=== PATIENT | male | born 1975 | race African-American/Black ===

== ENCOUNTER 2017-01-28 23:56 | Emergency (ER) | payer MEDICARE, OTHER ==
[~2017-01-28] VITALS: Ht 177.8 cm; Wt 171.5 kg
[~2017-01-28 23:56] MED LIST: ALBUTEROL SULF8.5 GM INH; AMOXICILLIN500 MG ORAL; ASPIR 8181 MG ORAL; ASPIRIN EC81 MG ORAL; BENAZEPRIL HCL20 MG ORAL; CLINDAMYCIN HC300 MG ORAL; FAMOTIDINE20 MG ORAL; HALOPERIDOL MC; HALOPERIDOL10 MG ORAL; HYDROXYZINE PA100 MG ORAL; HYDROXYZINE PAM50 MG PO; IBUPROFEN200 M2 ORAL; LISINOPRIL10 MG ORAL; METOPROLOL TART25 MG ORAL; PANTOPRAZOLE SO40 MG ORAL; PAROXETINE HC12.5 MG ORAL; PREDNISONE20 MG ORAL; VENTOLIN HFA18 GM INH; ZIPRASIDONE HCL80 MG ORAL
[2017-01-29 01:59] LABS: BASOPHILS % (AUTO) 1.1 % (0.0-2.0); EOSINOPHILS % (AUTO) 4.5 % (0.0-3.0); LYMPHOCYTES % (AUTO) 24.7 % (20.0-45.0); MEAN CORPUSCULAR HEMOGLOBIN 26.8 PG (27.0-31.0); MEAN CORPUSCULAR HGB CONC 31.8 G/DL (32.0-36.0); MEAN CORPUSCULAR VOLUME 84 FL (80-99); MEAN PLATELET VOLUME 9.5 FL (6.5-10.1); MONOCYTES % (AUTO) 7.4 % (1.0-10.0); NEUTROPHILS % (AUTO) 62.3 % (45.0-75.0); PLATELET COUNT 217 K/UL (150-450); RED BLOOD COUNT 5.91 M/UL (4.70-6.10); RED CELL DISTRIBUTION WIDTH 12.7 % (11.6-14.8); WHITE BLOOD COUNT 11.8 K/UL (4.8-10.8)
[2017-01-29 02:13] LABS: ACETAMINOPHEN < 10 ug/mL (10-30); ALANINE AMINOTRANSFERASE 18 U/L (3-41); ALBUMIN/GLOBULIN RATIO 1.3 (1.0-2.7); ALCOHOL < 10 mg/dL; ANION GAP 15 (5-15); ASPARTATE AMINO TRANSFERASE 21 U/L (5-40); CALCIUM 9.3 mg/dL (8.6-10.2); CARBON DIOXIDE 27 mEQ/L (20-30); CHLORIDE 97 mEQ/L (98-107); CREATININE 1.2 mg/dL (0.7-1.2); GLOMERULAR FILTRATION RATE > 60 mL/min (>60); HEMOLYSIS 15; POTASSIUM 4.1 mEQ/L (3.4-4.9); SODIUM 139 mEQ/L (135-145); TOTAL PROTEIN 7.5 g/dL (6.6-8.7)
[2017-01-29 03:00] VITALS: BP 131/85
[2017-01-29 05:00] VITALS: BP 123/74
--- NOTE | 2017-01-29 07:02 | Emergency Room Report ---
History of Present Illness General Chief Complaint: Behavioral Complaint Source: Patient Present Illness HPI 41-year-old male presents ED for evaluation. States that he has extensive psychiatric history and states that the last several days he's been hearing voices. The voices are telling him to jump into traffic. patient states he tried to jump into traffic today but says he pulled himself away at the last second. Voices also tell him not to take his medications. Patient denies any homicidal ideation. Patient denies alcohol or drug use. No other aggravating or relieving factors. Denies any other systems symptom Allergies: Coded Allergies: CLINDAMYCIN (Unverified Allergy, Unknown, rash, 02/18/16) Uncoded Allergies: CLYNDAMYACIN (Allergy, Mild, rash, 02/18/16) Patient History Past Medical History: HTN, asthma, psych hx Past Surgical History: none Pertinent Family History: none Social History: Denies: alcohol use, drug use, smoking Immunizations: UTD Reviewed Nursing Documentation: PMH: Agreed, PSxH: Agreed Nursing Documentation-PMH Hx Hypertension: Yes Hx Asthma: Yes History Of Psychiatric Problem: Yes - BIPOLAR,SCHIZO Review of Systems All Other Systems: negative except mentioned in HPI Physical Exam Vital Signs Date Time Temp Pulse Resp B/P Pulse Ox O2 Delivery O2 Flow Rate FiO2 01/29/17 00:32 97.7 70 18 130/76 100 Room Air Sp02 EP Interpretation: reviewed, normal General Appearance: no apparent distress, alert, GCS 15, non-toxic, obese Head: normocephalic Eyes: bilateral eye PERRL, bilateral eye normal inspection ENT: normal ENT inspection Neck: normal inspection Respiratory: chest non-tender, lungs clear, normal breath sounds, speaking full sentences Cardiovascular #1: regular rate, rhythm, no edema Gastrointestinal: normal bowel sounds, non tender, soft, non-distended, no guarding, no rebound Rectal: deferred Genitourinary: no CVA tenderness Musculoskeletal: normal inspection Neurologic: alert, oriented x3, responsive, motor strength/tone normal, sensory intact, speech normal Suicide Risk Assessment: Suicidal Ideation: Yes Had intent to initiate attempt: Yes Pt's plan for suicide attempt: Yes Has means to complete attempt: Yes Skin: normal inspection Lymphatic: normal inspection Medical Decision Making Diagnostic Impression: Primary Impression: Behavioral change ER Course Hospital Course 41-year-old male presents to ED for suicidal ideation. hearing voices to run into traffic Differential diagnoses include: Major depressive disorder, unspecified psychosis , EtOH abuse, drug abuse Clinical course Patient placed on stretcher. After initial history and physical I ordered labs , U. tox Labs-electrolytes normal, aspirin/Tylenol levels normal, EtOH level normal, U. tox +BZs Patient is medically cleared and pending psychiatric evaluation. i. I feel this is a highly complex case requiring extensive working including EKG/Rhythm strip, Xray/CT/US, Blood/urine lab work, repeat exams while in ED, and administration of strong opiates/narcotics for pain control, admission to hospital or close patient follow up. Labs Test 01/29/17 01:40 01/29/17 03:00 White Blood Count 11.8 K/UL (4.8-10.8) Red Blood Count 5.91 M/UL (4.70-6.10) Hemoglobin 15.8 G/DL (14.2-18.0) Hematocrit 49.7 % (42.0-52.0) Mean Corpuscular Volume 84 FL (80-99) Mean Corpuscular Hemoglobin 26.8 PG (27.0-31.0) Mean Corpuscular Hemoglobin Concent 31.8 G/DL (32.0-36.0) Red Cell Distribution Width 12.7 % (11.6-14.8) Platelet Count 217 K/UL (150-450) Mean Platelet Volume 9.5 FL (6.5-10.1) Neutrophils (%) (Auto) 62.3 % (45.0-75.0) Lymphocytes (%) (Auto) 24.7 % (20.0-45.0) Monocytes (%) (Auto) 7.4 % (1.0-10.0) Eosinophils (%) (Auto) 4.5 % (0.0-3.0) Basophils (%) (Auto) 1.1 % (0.0-2.0) Sodium Level 139 mEQ/L (135-145) Potassium Level 4.1 mEQ/L (3.4-4.9) Chloride Level 97 mEQ/L (98-107) Carbon Dioxide Level 27 mEQ/L (20-30) Anion Gap 15 (5-15) Blood Urea Nitrogen 14 mg/dL (7-23) Creatinine 1.2 mg/dL (0.7-1.2) Estimat Glomerular Filtration Rate > 60 mL/min (>60) Glucose Level 95 mg/dL (74-106) Calcium Level 9.3 mg/dL (8.6-10.2) Total Bilirubin 0.7 mg/dL (0.0-1.2) Aspartate Amino Transf (AST/SGOT) 21 U/L (5-40) Alanine Aminotransferase (ALT/SGPT) 18 U/L (3-41) Alkaline Phosphatase 119 U/L (40-129) Total Protein 7.5 g/dL (6.6-8.7) Albumin 4.3 g/dL (3.5-5.2) Globulin 3.2 g/dL Albumin/Globulin Ratio 1.3 (1.0-2.7) Salicylates Level < 1 mg/dL (10-30) Acetaminophen Level < 10 ug/mL (10-30) Serum Alcohol < 10 mg/dL Urine Opiates Screen Negative (NEGATIVE) Urine Barbiturates Screen Negative (NEGATIVE) Phencyclidine (PCP) Screen Negative (NEGATIVE) Urine Amphetamines Screen Negative (NEGATIVE) Urine Benzodiazepines Screen Negative (NEGATIVE) Urine Cocaine Screen Negative (NEGATIVE) Urine Marijuana (THC) Screen Negative (NEGATIVE) Last Vital Signs Date Time Temp Pulse Resp B/P Pulse Ox O2 Delivery O2 Flow Rate FiO2 01/29/17 00:32 97.7 70 18 130/76 100 Room Air Status: improved Disposition: XFER TO PSYCH HOSP/UNIT Condition: Serious Referrals: NOT CHOSEN AMANDA/,REFERRING (PCP) JOSE LIN M.D. Jan 29, 2017 07:02
[2017-01-29 07:10] VITALS: BP 124/71
[2017-01-29 07:17] VITALS: BP 114/7
[2017-01-29] MEDS ORDERED: TAMSULOSIN HCL0.4 MG ORAL (09:23)
[2017-01-29] MEDS ORDERED: Metoprolol 25mg tab ORAL ONE (09:30)
[2017-01-29] MEDS ORDERED: Tamsulosin 0.4mg cap ORAL SCH (09:30)
[2017-01-29 11:00] VITALS: BP 118/73
[2017-01-29] MEDS ORDERED: LASIX20 M1 ORAL (14:31)
[2017-01-29] MEDS ORDERED: PRILOSEC OTC20 MG ORAL (14:31)
[2017-01-29] MEDS ORDERED: BENAZEPRIL HCL20 MG ORAL (14:31)
[2017-01-29] MEDS ORDERED: ALBUTEROL SULF8.5 GM INH (14:31)
[2017-01-29 14:34] VITALS: BP 124/71
--- NOTE | 2017-01-29 23:44 | Consultation ---
Consult Note Consult Note The pt returned to [facility] ed and by mistake i entered my note with a wring visit number. visit number is [id number] Herberth Bolivar M.D. Jan 29, 2017 23:44
== END 2017-01-29 14:42 | disposition home or self-care (01) ==
LOC: EMR 01-29 00:57
DX: F91.9 Conduct disorder, unspecified (principal); R45.851 Suicidal ideations; F25.9 Schizoaffective disorder, unspecified; I10 Essential (primary) hypertension; J45.909 Unspecified asthma, uncomplicated; K21.9 Gastro-esophageal reflux disease without esophagitis
CPT/HCPCS: 36415; 80053; 80300; 85025; 99285; G0480; 80329

== ENCOUNTER 2017-01-30 17:40 | Emergency (ER) | payer MEDICARE, OTHER ==
[~2017-01-30] VITALS: Ht 193 cm; Wt 171.5 kg
[~2017-01-30 17:40] MED LIST changes: +LASIX20 M1 ORAL; +PRILOSEC OTC20 MG ORAL; +TAMSULOSIN HCL0.4 MG ORAL
--- NOTE | 2017-01-30 17:56 | Emergency Room Report ---
History of Present Illness General Chief Complaint: Behavioral Complaint Source: Patient, Medical Record Present Illness HPI 41YOM again to ED with "still hearing voices and my legs are swollen." Patient has been here 3x last 3 days. Was evaluated thoroughly by Psych consult Dr Bolivar previously. Patient lied to Dr Sherwood about recent hospitalizations at [place]. Please see EMR [id number] for record under Satnam Cheathma Jr Patient was here last night overnight for multiple hours. DC by Dr Fajardo this morning after Cx with Dr Pompa Patient was tx with lasix and given Rx also by Dr Fajardo Denies associated chest pain, SOB, palpitations Allergies: Coded Allergies: CLINDAMYCIN (Unverified Allergy, Unknown, rash, 02/18/16) Uncoded Allergies: CLYNDAMYACIN (Allergy, Mild, rash, 02/18/16) Patient History Past Medical History: CHF, psych hx Past Surgical History: none Pertinent Family History: none Social History: Denies: alcohol use, drug use, smoking Immunizations: UTD Reviewed Nursing Documentation: PMH: Agreed, PSxH: Agreed Nursing Documentation-PMH Past Medical History: No History, Except For Hx Hypertension: Yes Hx Asthma: Yes Review of Systems All Other Systems: negative except mentioned in HPI Physical Exam Vital Signs Date Time Temp Pulse Resp B/P Pulse Ox O2 Delivery O2 Flow Rate FiO2 01/30/17 17:47 98.8 94 18 123/75 100 Room Air Sp02 EP Interpretation: reviewed, normal General Appearance: normal inspection, well appearing, no apparent distress, alert, GCS 15, non-toxic Head: normocephalic, atraumatic Eyes: bilateral eye EOMI, bilateral eye PERRL ENT: normal ENT inspection, hearing grossly normal, normal voice Neck: normal inspection, full range of motion, supple, no bony tend Respiratory: normal inspection, lungs clear, normal breath sounds, no respiratory distress, no retraction, no wheezing Cardiovascular #1: regular rate, rhythm, no edema Gastrointestinal: normal inspection, normal bowel sounds, non tender, soft, no guarding, no hernia Genitourinary: no CVA tenderness Musculoskeletal: normal inspection, back normal, normal range of motion, Eddy' s Sign negative Neurologic: normal inspection, alert, oriented x3, responsive, wall covering installer III-XII nml as tested, motor strength/tone normal, speech normal Psychiatric: normal inspection, judgement/insight normal, mood/affect normal Skin: normal inspection, normal color, no rash Medical Decision Making Diagnostic Impression: Primary Impression: Behavioral change ER Course Auditory hallucinations - Patient with repeat visits here and other ERs - Lying to Psychiatrists with intent on obtaining penitentiary for the night - Was evaluated and cleared multiple times by Psychiatry - Likely malingering for penitentiary again today - Advised to return to [facility] walk-in clinic or [facility] as needed for psych management Leg swelling - VSS. No hypoxia - Was just tx with lasix this morning. - Has Rx - No acute CHF currently - Advised taking Lasix, followup with PMD Last Vital Signs Date Time Temp Pulse Resp B/P Pulse Ox O2 Delivery O2 Flow Rate FiO2 01/30/17 17:47 98.8 94 18 123/75 100 Room Air Status: improved Disposition: HOME, SELF-CARE Condition: Improved Patient Instructions: Medical Screening Exam MICHELLE MENDES M.D. Jan 30, 2017 17:56
[2017-01-30 18:03] VITALS: BP 123/75
[2017-01-30 18:04] VITALS: BP 1/1
[2017-01-31] MEDS ORDERED: TAMSULOSIN HCL0.4 MG ORAL (17:37)
[2017-01-31] MEDS ORDERED: FUROSEMIDE40 MG ORAL (17:37)
== END 2017-01-30 18:00 | disposition home or self-care (01) ==
LOC: EMR 17:49
DX: F91.9 Conduct disorder, unspecified (principal); M79.89 Other specified soft tissue disorders; R44.0 Auditory hallucinations; I10 Essential (primary) hypertension; J45.909 Unspecified asthma, uncomplicated; I50.9 Heart failure, unspecified
CPT/HCPCS: 99284

== ENCOUNTER 2017-01-31 03:55 | Emergency (ER) | payer MEDICARE, OTHER ==
[~2017-01-31] VITALS: Ht 177.8 cm; Wt 171.5 kg
[2017-01-31 04:19] VITALS: BP 138/82
--- NOTE | 2017-01-31 04:26 | Emergency Room Report ---
History of Present Illness General Chief Complaint: Constipation Source: Patient Present Illness HPI This is a morbidly obese 41-year-old male with a history. He presents with chief complaint of constipation. Also complaining of generalized edema. Also has knee pain. Also has chapped lips. He's been here multiple times and consecutive days for the same thing. Thought homicidal thought. He said he has no psych problem. No other complaint. Allergies: Coded Allergies: CLINDAMYCIN (Unverified Allergy, Unknown, rash, 02/18/16) Uncoded Allergies: CLYNDAMYACIN (Allergy, Mild, rash, 02/18/16) Patient History Past Medical History: see triage record, old chart reviewed, psych hx Past Surgical History: other Pertinent Family History: none Social History: Denies: smoking Immunizations: other Reviewed Nursing Documentation: PMH: Agreed, PSxH: Agreed Nursing Documentation-PMH Hx Hypertension: Yes Hx Asthma: Yes Review of Systems Eye: Denies: blurred vision, eye pain ENT: Denies: ear pain, nose congestion, throat swelling Respiratory: Denies: cough, shortness of breath Cardiovascular: Denies: chest pain, palpitations Gastrointestinal: Denies: abdominal pain, diarrhea, nausea, vomiting Musculoskeletal: Denies: back pain, joint pain Skin: Denies: rash Neurological: Denies: headache, numbness Endocrine: Denies: increased thirst, increased urine Hematologic/Lymphatic: Denies: easy bruising All Other Systems: negative except mentioned in HPI Physical Exam Vital Signs Date Time Temp Pulse Resp B/P Pulse Ox O2 Delivery O2 Flow Rate FiO2 01/31/17 04:17 97.9 63 18 138/82 99 Room Air vitals normal Sp02 EP Interpretation: reviewed, normal General Appearance: well appearing, no apparent distress, alert, obese Head: normocephalic, atraumatic Eyes: bilateral eye EOMI, bilateral eye PERRL ENT: hearing grossly normal, normal pharynx Neck: full range of motion, supple, no meningismus Respiratory: chest non-tender, lungs clear, normal breath sounds Cardiovascular #1: regular rate, rhythm, no murmur Gastrointestinal: normal bowel sounds, non tender, no mass, no organomegaly, no bruit, non-distended Musculoskeletal: back normal, gait/station normal, normal range of motion Psychiatric: mood/affect normal Skin: warm/dry Medical Decision Making Diagnostic Impression: Primary Impression: Constipation Qualified Codes: K59.00 - Constipation, unspecified Additional Impression: Somatization disorder ER Course Patient presents with multiple different complaints. I see no acute process. No new problem. We'll discharge home. Last Vital Signs Date Time Temp Pulse Resp B/P Pulse Ox O2 Delivery O2 Flow Rate FiO2 01/31/17 04:19 97.8 63 16 138/82 99 Room Air Status: unchanged Disposition: HOME, SELF-CARE Condition: Stable Patient Instructions: Constipation, Adult Additional Instructions: Followup with your Dr. 7 days. Return if symptom worsen. You do not need to go to the ER for minor complaints like this. ALTHEA RIDDLE M.D. Jan 31, 2017 04:25
[2017-01-31 04:29] VITALS: BP 1/1
[2017-01-31] MEDS ORDERED: FUROSEMIDE40 MG ORAL (17:37)
[2017-01-31] MEDS ORDERED: TAMSULOSIN HCL0.4 MG ORAL (17:37)
== END 2017-01-31 04:30 | disposition home or self-care (01) ==
LOC: EMR 04:15
DX: K59.00 Constipation, unspecified (principal); F45.9 Somatoform disorder, unspecified; Z88.1 Allergy status to other antibiotic agents; J45.909 Unspecified asthma, uncomplicated; I10 Essential (primary) hypertension
CPT/HCPCS: 99282; 99284

== ENCOUNTER 2017-01-31 16:56 | Emergency (ER) | payer MEDICARE, OTHER ==
[~2017-01-31] VITALS: Ht 177.8 cm; Wt 171.5 kg
--- NOTE | 2017-01-31 17:36 | Emergency Room Report ---
History of Present Illness General Chief Complaint: Medication Refill Source: Patient Present Illness HPI 41-year-old male presents emergency department requesting medication refill for Lasix and furosemide. Patient states he has been out of his medications for approximately 2 weeks. Patient denies following up with his primary care doctor regularly. Patient states he takes Lasix for swelling in the feet. Patient denies calf pain or tenderness denies erythema. Patient reports current swelling in his feet bilaterally. Patient denies any other associated symptoms at this time. Denies CP, Palpitations, LOC, AMS, dizziness, Changes in Vision, Sensation, paresthesias, or a sudden severe headache. Allergies: Coded Allergies: CLINDAMYCIN (Unverified Allergy, Unknown, rash, 02/18/16) Uncoded Allergies: CLYNDAMYACIN (Allergy, Mild, rash, 02/18/16) Patient History Past Medical History: see triage record, psych hx Past Surgical History: none Pertinent Family History: none Reviewed Nursing Documentation: PMH: Agreed, PSxH: Agreed Nursing Documentation-PMH Hx Hypertension: Yes Hx Asthma: Yes Review of Systems All Other Systems: negative except mentioned in HPI Physical Exam Vital Signs Date Time Temp Pulse Resp B/P Pulse Ox O2 Delivery O2 Flow Rate FiO2 01/31/17 17:08 98.2 77 15 128/80 98 Sp02 EP Interpretation: reviewed, normal General Appearance: no apparent distress, alert, GCS 15, non-toxic Head: normocephalic, atraumatic Eyes: bilateral eye PERRL, bilateral eye normal inspection ENT: hearing grossly normal, normal pharynx, no angioedema, normal voice Neck: full range of motion, supple/symm/no masses Respiratory: chest non-tender, lungs clear, normal breath sounds, speaking full sentences Cardiovascular #1: regular rate, rhythm, other - no evidence of infection, calves are non-tender, mild non-pitting edema noted, good circulation Musculoskeletal: back normal, gait/station normal, normal range of motion, no calf tenderness Neurologic: alert, oriented x3, responsive, motor strength/tone normal, sensory intact, cerebellar normal, normal gait, speech normal Psychiatric: judgement/insight normal, memory normal, mood/affect normal Skin: normal color, no rash, warm/dry, well hydrated, other - no evidence of infection, calves are non-tender, mild non-pitting edema noted, good circulation Medical Decision Making PA Attestation Dr. lane is my supervising Physician whom patient management has been discussed with. Diagnostic Impression: Primary Impression: Encounter for medication refill ER Course 41-year-old male presents emergency department requesting medication refill for Lasix and furosemide. Patient states he has been out of his medications for approximately 2 weeks. Patient denies following up with his primary care doctor regularly. Patient states he takes Lasix for swelling in the feet. Patient denies calf pain or tenderness denies erythema. Patient reports current swelling in his feet bilaterally. Patient denies any other associated symptoms at this time. Denies CP, Palpitations, LOC, AMS, dizziness, Changes in Vision, Sensation, paresthesias, or a sudden severe headache. Ddx considered but are not limited to: drug seeking, OD, chronic edema, DVT, cellulitis, musculoskeletal injury, need for routine medication refill, - This pt. has visited this ED daily for 4 consecutive days and has had multiple evaluations by various providers which have ultimately been unremarkable for acute conditions. -- I have reviewed this patients medical records. Vital signs: are WNL, pt. is afebrile H&PE are most consistent with need for medication refill. - no evidence of infection, calves are non-tender, mild non-pitting edema noted, good circulation --I do not suspect an emergent condition at this time. with current presentation pt. is stable for close outpatient follow up. ORDERS: none required at this time, the diagnosis is clinical ED INTERVENTIONS: None required at this time. -d/w pt. the importance of seeing a PCP regularly to decrease need to visit ED for preventable visits such as medication refills. DISCHARGE: At this time pt. is stable for d/c to home. Will provide printed patient care instructions, and any necessary prescriptions. Care plan and follow up instructions have been discussed with the patient prior to discharge. Last Vital Signs Date Time Temp Pulse Resp B/P Pulse Ox O2 Delivery O2 Flow Rate FiO2 01/31/17 17:08 98.2 77 15 128/80 98 Disposition: HOME, SELF-CARE Condition: Stable Scripts Furosemide* (LASIX*) 40 Mg Tablet 40 MG ORAL DAILY for 30 Days, #30 TAB Prov: Cinthia Felix 01/31/17 Tamsulosin Hcl (TAMSULOSIN HCL*) 0.4 Mg Cap.er.24h 0.4 MG ORAL BEDTIME for 30 Days, #30 CAP Prov: Cinthia Felix 01/31/17 Patient Instructions: Medicine Refill at the Emergency Department Additional Instructions: Take medications as directed. Follow up with PCP in 3-5 days * Review list of clinics for primary care follow up and for future medication refills. * Return sooner to ED if new symptoms occur, or current symptoms become worse. - Please note that this Emergency Department Report was dictated using [employer] worker technology software, occasionally this can lead to erroneous entry secondary to interpretation by the dictation equipment. Cinthia Felix. Jan 31, 2017 17:36
[2017-01-31] MEDS ORDERED: TAMSULOSIN HCL0.4 MG ORAL (17:37)
[2017-01-31] MEDS ORDERED: FUROSEMIDE40 MG ORAL (17:37)
[2017-01-31 18:35] VITALS: BP_SYST 124; BP_SYST 128; BP_DIAS 80; BP_DIAS 83
== END 2017-01-31 18:16 | disposition home or self-care (01) ==
LOC: EMR 17:37
DX: R60.9 Edema, unspecified (principal); Z76.0 Encounter for issue of repeat prescription; I10 Essential (primary) hypertension; J45.909 Unspecified asthma, uncomplicated; Z88.1 Allergy status to other antibiotic agents
CPT/HCPCS: 99284

== ENCOUNTER 2017-02-10 19:05 | Emergency (ER) | payer MEDICARE, OTHER ==
[~2017-02-10] VITALS: Ht 175.3 cm; Wt 170.6 kg
[~2017-02-10 19:05] MED LIST changes: +BACITRACIN15 GM TOPIC; +COLACE100 MG ORAL; +FUROSEMIDE40 MG ORAL; +MAALOX ADVANCE770 ML PO; +NKM; +RISPERIDONE2 MG ORAL
[2017-02-10 19:15] VITALS: BP 137/83
--- NOTE | 2017-02-10 20:35 | Emergency Room Report ---
History of Present Illness General Chief Complaint: General Complaint Source: Patient Present Illness HPI 41-year-old male presents emergency department complaining of suspicion that he was slipped parasite through tooth paste in addition to palpitations times one day. Patient denies cardiac history. Patient reports psychiatric history the patient denies nausea, vomiting, fevers, chills, rashes. Patient denies constipation, diarrhea or abdominal pain. Patient denies night sweats, significant changes in weight. denies history of thyroid dysfunction. Denies CP , Palpitations, LOC, AMS, dizziness, Changes in Vision, Sensation, paresthesias , or a sudden severe headache. Allergies: Coded Allergies: CLINDAMYCIN (Unverified Allergy, Unknown, rash, 02/18/16) Uncoded Allergies: CLYNDAMYACIN (Allergy, Mild, rash, 02/18/16) Patient History Past Medical History: see triage record Past Surgical History: none Pertinent Family History: none Reviewed Nursing Documentation: PMH: Agreed, PSxH: Agreed Nursing Documentation-PMH Past Medical History: No History, Except For Hx Hypertension: Yes Hx Asthma: Yes Review of Systems All Other Systems: negative except mentioned in HPI Physical Exam Vital Signs Date Time Temp Pulse Resp B/P Pulse Ox O2 Delivery O2 Flow Rate FiO2 02/10/17 19:15 98.8 16 137/83 100 Room Air 02/10/17 19:15 81 Sp02 EP Interpretation: reviewed, normal General Appearance: no apparent distress, alert, GCS 15, non-toxic, obese Head: normocephalic, atraumatic Eyes: bilateral eye PERRL, bilateral eye normal inspection ENT: hearing grossly normal, normal pharynx, no angioedema, normal voice, other - no goiter Neck: full range of motion, supple/symm/no masses Respiratory: lungs clear, normal breath sounds, speaking full sentences Cardiovascular #1: regular rate, rhythm, no edema Cardiovascular #2: 2+ radial (R), 2+ radial (L) Gastrointestinal: normal bowel sounds, non tender, soft, no guarding, no rebound Rectal: deferred Genitourinary: normal inspection, no CVA tenderness Musculoskeletal: back normal, gait/station normal, normal range of motion, non- tender, no calf tenderness Neurologic: alert, oriented x3, responsive, motor strength/tone normal, sensory intact, speech normal Psychiatric: judgement/insight normal, memory normal, mood/affect normal Skin: normal color, no rash, warm/dry, well hydrated Medical Decision Making PA Attestation Dr. Lowe is my supervising Physician whom patient management has been discussed with. Diagnostic Impression: Primary Impression: Encounter for medical screening examination ER Course 41-year-old male presents emergency department complaining of suspicion that he was slipped parasite through tooth paste in addition to palpitations times one day. Patient denies cardiac history. Patient reports psychiatric history the patient denies nausea, vomiting, fevers, chills, rashes. Patient denies constipation, diarrhea or abdominal pain. Patient denies night sweats, significant changes in weight. denies history of thyroid dysfunction. Denies CP , Palpitations, LOC, AMS, dizziness, Changes in Vision, Sensation, paresthesias , or a sudden severe headache. Ddx considered but are not limited to palpitations, thyroid, psych, anxiety, dysrhythmia. Vital signs: are WNL, pt. is afebrile H&PE are most consistent with no acute injury or disease noted at this time. pt. is NAD, NON-toxic, able to answer questions appropriately, pt. is oriented, and no signs of trauma or focal neurological deficits. ORDERS: EKG: NSR [address] changes interpreted by Dr. Lowe, and scribed by PA. ED INTERVENTIONS: None required at this time Pt. is stable for close outpatient follow up. D/W pt. that parasite testing needs to be followed up by PCP as he is asymptomatic and I do not suspect an emergent parasitic infection at this time. I do not suspect an emergent condition at this time. with current presentation pt. is stable for close outpatient follow up. DISCHARGE: At this time pt. is stable for d/c to home. Will provide printed patient care instructions, and any necessary prescriptions. Care plan and follow up instructions have been discussed with the patient prior to discharge. EKG Diagnostic Results EP Interpretation: Dr. Lowe Rhythm: NSR - [address] Segments: no acute changes ASA given to the pt in ED: No PA Scribe Text NSR [address] changes interpreted by Dr. Lowe, and scribed by PA. Last Vital Signs Date Time Temp Pulse Resp B/P Pulse Ox O2 Delivery O2 Flow Rate FiO2 02/10/17 19:15 98.8 81 16 137/83 100 Room Air Disposition: HOME, SELF-CARE Condition: Stable Referrals: NOT CHOSEN [facility]/,REFERRING (PCP) Patient Instructions: Medical Screening Exam Additional Instructions: Take any previously prescribed medications as directed. Follow up with a Primary Care Provider in 3-5 days, even if your symptoms have resolved. --Please review list of primary care clinics, if you do not already have a primary care provider Return sooner to ED if new symptoms occur, or current symptoms become worse. - Please note that this Emergency Department Report was dictated using [employer] fund[employer] technology software, occasionally this can lead to erroneous entry secondary to interpretation by the dictation equipment. Cinthia Felix Feb 10, 2017 20:35
[2017-02-10 21:38] VITALS: BP 137/83
--- NOTE | 2017-02-13 17:52 | Cardiology Report ---
APPROVED REPORT EKG Measurement Heart [id number] Normal sinus rhythm Septal infarct, age undetermined Abnormal ECG
== END 2017-02-10 21:38 | disposition home or self-care (01) ==
LOC: EMR 20:00
DX: Z04.8 Encounter for examination and observation for other specified reasons (principal); I10 Essential (primary) hypertension; J45.909 Unspecified asthma, uncomplicated; Z88.1 Allergy status to other antibiotic agents
CPT/HCPCS: 93005; 99284